=== PATIENT | female | born 1950 | race Caucasian/White ===

== ENCOUNTER 2021-07-08 11:16 | Outpatient (REF) | payer MEDICARE, SELFPAY ==
[2021-07-08 11:53] LABS: COVID-19 Test Negative (Negative)
== END 2021-07-08 11:17 | disposition home or self-care (01) ==
LOC: HO.LAB 11:16
PROVIDERS: Visit Provider Internal Medicine
DX: Z20.822 Contact with and (suspected) exposure to COVID-19 (principal)
CPT/HCPCS: 36415; 87635; C9803

== ENCOUNTER 2021-09-24 11:10 | Outpatient (REF) | payer MEDICARE, OTHER, SELFPAY ==
[2021-09-24 11:35] LABS: COVID-19 Test Negative (Negative)
== END 2021-09-24 11:11 | disposition home or self-care (01) ==
LOC: HO.LAB 11:10
PROVIDERS: Visit Provider Internal Medicine
DX: Z20.822 Contact with and (suspected) exposure to COVID-19 (principal)
CPT/HCPCS: 87635; C9803

== ENCOUNTER 2021-09-28 09:19 | Outpatient (REF) | payer MEDICARE, OTHER, SELFPAY ==
[2021-09-28 09:48] LABS: Binax Internal Control QC Valid; Binax Now Covid-19 Ag Negative (Negative)
== END 2021-09-28 09:20 | disposition home or self-care (01) ==
LOC: HO.LAB 09:19
PROVIDERS: Visit Provider Internal Medicine
DX: Z20.822 Contact with and (suspected) exposure to COVID-19 (principal)
CPT/HCPCS: C9803

== ENCOUNTER 2024-07-29 13:44 | Emergency (ER) | payer MEDICARE, OTHER, SELFPAY ==
[2024-07-29 13:53] VITALS: BP 139/83; PULSE 71; RESP 16; TEMP 36.8; O2SAT 98; BMI 32.6
--- NOTE | 2024-07-29 13:55 | ED.HA ---
HPI - Headache General Chief Complaint: General Medical Stated Complaint: l side pain from neck to head Time Seen by Provider: 07/29/24 14:35 Source: patient Mode of arrival: ambulatory Limitations: no limitations History of Present Illness ED Provider: FRANCESCA Vicente HPI Narrative: 73 year old female presents w/ one month of shooting pain and stabbing paint to forehead, cheek, gums, chins and below the chin. EPisodes last a few seconds and are severe. She also mentions sore throat and congestion. No sick contacts. No cp, sob, nausea, vomiting, abd pain, headache, vision changes, dizziness, weakness. No trauma Related Data Previous Rx's ?Medication ?Instructions ?Recorded gabapentin 100 mg capsule 100 mg PO TID #14 caps 07/29/24 Allergies Allergy/AdvReac Type Severity Reaction Status Date / Time No Known Allergies Allergy Verified 07/29/24 13:54 [No Known Allergies*] Review of Systems Review of Systems: Yes all other systems are reviewed and are negative [facility] Past Medical History Attestation statement: The following information was validated with the patient. Source: old records reviewed and nursing notes reviewed Social History Social History Advance Directives: No Advance Directives Information Provided: No Physical Exam Vital Signs: Vital Signs: Last Vital Signs Temp 98.2 F 07/29/24 15:39 Pulse 71 07/29/24 15:39 Resp 16 07/29/24 15:39 BP 139/83 07/29/24 15:39 Pulse Ox 98 07/29/24 15:39 O2 Del Method Room Air 07/29/24 15:39 BMI result Body Mass Index 32.6 vss Appearance: Alert.? Oriented X3.? No acute distress.? Head: Normocephalic, atraumatic, no step-offs or deformities Eyes: Pupils equal, round and reactive to light.? CVS: Normal heart rate and rhythm.? Pulses normal.? Respiratory: No respiratory distress.? Breath sounds normal.? Abdomen: Soft and nontender.? Skin: Skin warm and dry.? Normal skin color.? Normal skin turgor.?+ sensitivity w/ palpation of L forehead, cheek, submandibular disocomfort Extremities: No lower extremity edema.? No calf ttp. 5/5 strength to bilateral upper and lower extremities Neuro: Oriented X 3.? No motor deficit.? No sensory deficit. CN 2-12 intact Course Course Course Narrative: This is a rapid medical exam. Deferred additional HPI, ROS, PE to primary provider. 73 yo female with history of OP, anxiety, depression, HTN here with complaints of left sided facial pain described as burning which radiates to the head and neck x 1 month. Has not been seen by PCP. Also has complaints of sore throat, pain with swallowing and cough. Will obtain viral testing, strep testing. MISHA Waite APRN Reevaluation(s) Reevaluation #1: CBC unremarkable. Chemistry pending. Lyme test pending. Time: 15:49 Reevaluation #2: Patient will be called if lyme test or tick testing + Plan dc home w/ neuro follow up Time: 15:51 Medical Decision Making Medical Decision Making [facility] Narrative: 1450 73 year old female presents w/ pain to left side of face including ear, forehead, sore throat, neck, ear. PE benign sensitivity w/ palpation of L forehead, cheek, submandibular disocomfort Hx and pe concerning for trigemnial neuralgia. No signs of bells palsy, guilliane barre, stroke, ich, meningitis, encephalitis. Plan- Differential Diagnosis Differential Diagnoses: The differential diagnosis associated with the presentation includes (Hx and pe concerning for trigemnial neuralgia. No signs of bells palsy, guilliane barre, stroke, ich, meningitis, encephalitis. ) Admission/Observation Consideration of admission/observation: Escalation of care including admission/observation considered Lab Data [facility] Lab Attestation statement: I reviewed the patient's lab results. 07/29/24 15:22 07/29/24 15:22 Labs: Lab Results 07/29/24 07/29/24 Range/Units 14:47 15:22 WBC 9.0 (4.8-10.8) X10*3/uL RBC 5.30 (4.20-5.50) X10*6/uL Hgb 14.5 (12.0-16.0) g/dl Hct 44.0 (37.0-47.0) % MCV 83.0 (80.0-98.0) fL MCH 27.4 (27.0-33.0) pg MCHC 33.0 (31.0-35.0) g/dl RDW 14.0 (11.0-16.0) % Plt Count 233 (160-400) X10*3/uL MPV 11.4 (9.4-12.3) fL Immature Gran % (Auto) 0.3 (0.0-0.4) % Neut % (Auto) 72.8 (45-73) % Lymph % (Auto) 17.7 L (20-40) % [place] % (Auto) 5.5 (2-11) % Eos % (Auto) 3.0 (0-4) % Baso % (Auto) 0.7 (0-2) % Lymph # (Auto) 1.6 (1.2-4.9) X10*3/uL [place] # (Auto) 0.5 (0.1-1.2) X10*3/uL Eos # (Auto) 0.3 (0.0-0.4) X10*3/uL Baso # (Auto) 0.1 (0.0-0.2) X10*3/uL Abs Immat Gran (auto) 0.03 (0.00-0.03) X10*3/uL Absolute Neuts (auto) 6.5 (2.0-8.3) x10*3/uL Absolute Nucleated RBC 0.000 (0.0-0.012) X10*3/uL Nucleated RBC % (auto) 0.0 (0.0-0.2) /100WBC Sodium 141 (135-145) mmol/L Potassium 3.0 L (3.3-5.1) mmol/L Chloride 105 (96-108) mmol/L Carbon Dioxide 26 (22-29) mmol/L Anion Gap 13 (12-20) BUN 15 (9-16) mg/dL Creatinine 0.83 (0.5-1.4) mg/dL Estim Creat Clear Calc 61.1 Estimated GFR > 60 Random Glucose 127 H (60-115) mg/dL Calcium 9.6 (8.4-10.2) mg/dL Total Bilirubin 1.0 (0.0-1.0) mg/dL AST 21 (5-31) U/L ALT 21 (0-31) U/L Alkaline Phosphatase 60 (39-117) U/L C-Reactive Protein 0.11 (< or = 0.50) mg/dL Total Protein 6.6 (6.5-8.0) g/dL Albumin 4.3 (3.5-5.0) g/dL Influenza Type A (PCR) NEGATIVE (Negative) Influenza Type B (PCR) NEGATIVE (Negative) RSV RNA Qual (PCR) NEGATIVE (Negative) SARS-CoV-2 RNA (RT-PCR) NEGATIVE (Negative) S. pyogenes GrpA BE Negative (Negative) Critical Care Time Critical Care Time Critical Care Time: No Discharge Plan Discharge Clinical Impression: Trigeminal neuralgia Patient Disposition: Home, Self-Care Instructions: Trigeminal Neuralgia (ED) Additional Instructions: Take your medications as prescribed. If you were prescribed antibiotics today, it is important that you take your medication to their entirety, do not skip any doses, do not finish them early. Follow-up with your primary care provider this week. Return to the emergency department with new or worsening symptoms. In case of emergency call 911 Gabapentin is a medication that has been sent to your pharmacy. It can cause lightheadedness and drowsiness its for nerve pain. You can start by taking 1 pill a night and then working your way up slowly to one pill three times a day as tollerated. Prescriptions: New gabapentin 100 mg capsule 100 mg PO TID Qty: 14 0RF Referrals: [facility] [place] Neuro/Sleep [Provider Group] - 2 days Physician,Unknown J [Primary Care Provider] - 2 days Stand Alone Forms: Work/School Release Interventions: ED Discharge Assessment Last Done: 07/29/24 15:39 Discharge Date/Time: 07/29/24 15:40 Print Language: Comoran
[2024-07-29 14:59] LABS: IDNOW Serial# 08D9AD1C; Strep A Nucleic Acid Negative (Negative)
[2024-07-29 15:32] LABS: Influenza A PCR NEGATIVE (Negative); Influenza B PCR NEGATIVE (Negative); Resp Syncy Virus RNA Qual PCR NEGATIVE (Negative); SARS COV2 PCR INHOUSE NEGATIVE (Negative)
[2024-07-29 15:33] LABS: MANUAL DIFF FLAG NO
[2024-07-29 15:35] LABS: Basophils Absolute Auto 0.1 X10*3/uL (0.0-0.2); Basophils Percent Auto 0.7 % (0-2); Eosinophils Absolute Auto 0.3 X10*3/uL (0.0-0.4); Hemoglobin 14.5 g/dl (12.0-16.0); Imm Gran Abs Auto 0.03 X10*3/uL (0.00-0.03); Imm Gran Pct Auto 0.3 % (0.0-0.4); Lymphocytes Absolute Auto 1.6 X10*3/uL (1.2-4.9); Lymphocytes Percent Auto 17.7 % (20-40); Mean Corpuscular Hemoglobin 27.4 pg (27.0-33.0); Mean Platelet Volume 11.4 fL (9.4-12.3); Monocytes Absolute Auto 0.5 X10*3/uL (0.1-1.2); Monocytes Percent Auto 5.5 % (2-11); Neutrophils Absolute Auto 6.5 x10*3/uL (2.0-8.3); Neutrophils Percent Auto 72.8 % (45-73); Platelet Count 233 X10*3/uL (160-400)
[2024-07-29 15:39] VITALS: BP 139/83; PULSE 71; RESP 16; TEMP 36.8; O2SAT 98
[2024-07-29 15:48] LABS: Alanine Aminotransferase 21 U/L (0-31); Albumin Level 4.3 g/dL (3.5-5.0); Alkaline Phosphatase 60 U/L (39-117); Anion Gap 13 (12-20); Aspartate Amino Transferase 21 U/L (5-31); Blood Urea Nitrogen 15 mg/dL (9-16); C Reactive Protein 0.11 mg/dL (< or = 0.50); Calcium 9.6 mg/dL (8.4-10.2); Carbon Dioxide 26 mmol/L (22-29); Chloride 105 mmol/L (96-108); Creatinine Clr Calc Pharmacy 61.1; Estimated Glomerular Filt Rate > 60; Glucose Random 127 mg/dL (60-115); Sodium 141 mmol/L (135-145); Total Protein 6.6 g/dL (6.5-8.0)
[2024-07-29 16:18] LABS: Erythrocyte Sedimentation Rate 4 MM/HR (0-20)
[2024-07-30 17:19] LABS: Lyme Abs Screen <0.90 index
[2024-07-30 22:39] LABS: A. Phagocytphilium DNA,RT-PCR NOT DETECTED (NOT DETECTED); Babesia Microti DNA, RT-PCR NOT DETECTED (NOT DETECTED); Borrelia Miyamotoi,DNA RT-PCR NOT DETECTED (NOT DETECTED); E.Chaffeensis DNA RT-PCR NOT DETECTED (NOT DETECTED); Lyme(Borrelia ssp)DNA RT-PCR NOT DETECTED (NOT DETECTED)
== END 2024-07-29 15:40 | disposition home or self-care (01) ==
PROVIDERS: Nurse Practitioner Family; Physician Assistant; Emergency Provider Emergency Medicine
DX: G50.0 Trigeminal neuralgia (principal); H92.02 Otalgia, left ear; M54.2 Cervicalgia; R51.9 Headache, unspecified; J02.9 Acute pharyngitis, unspecified; R09.89 Other specified symptoms and signs involving the circulatory and respiratory systems; Z03.818 Encounter for observation for suspected exposure to other biological agents ruled out; Z79.899 Other long term (current) drug therapy
CPT/HCPCS: 0241U; 36415; 80053; 85025; 85652; 86140; 86617; 86618; 87468; 87469; 87478; 87484; 87651; 87798; 99282; 99283

== ENCOUNTER 2025-02-26 11:51 | Emergency (ER) | payer MEDICARE, OTHER, SELFPAY ==
--- NOTE | ~2025-02-26 | CT_ITS ---
EXAMINATION: CT HEAD WITH/WITHOUT AND WITH CONTRAST CLINICAL INFORMATION: Change in head and neck pattern, worsening, hypertension COMPARISON: None available. TECHNIQUE: Contiguous axial imaging was performed from the skull base to vertex before and after the administration of 85 mL of Omnipaque [address] examination was performed using dose optimization techniques as appropriate, variously including the following: *Automated exposure control *Adjustment of mA and/or kV according to patient size (this includes techniques or standardized protocols for targeted exams where dose is matched to indication/reason for exam; i.e. extremities or head) *Use of iterative reconstruction technique DLP: 1202 mGY*cm FINDINGS: There is no acute ischemic change. Moderate periventricular deep white matter of the densities are present. There is no intracranial hemorrhage. There is no mass-effect or midline shift. Basal cisterns and ventricles are within normal limits for age/cerebral volume. Orbits are symmetrical and unremarkable. Paranasal sinuses and mastoid air cells are pneumatized. There are no bony abnormalities. With IV contrast, there is physiologic enhancement. 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 CT/CT head/brain wo/w IV con IMPRESSION: No acute intracranial abnormality. Moderate changes consistent with chronic small vessel ischemic disease. Electronically signed by: George Portillo MD 02/26/2025 02:38 PM EDT
--- NOTE | ~2025-02-26 | XR_ITS ---
EXAMINATION: XR CHEST 2 VIEWS HISTORY: cough COMPARISON: There are no prior studies available for comparison. FINDINGS: PA and lateral views of the chest are submitted. The lungs are expanded and clear. There is no pleural effusion, pneumothorax, or pulmonary vascular congestion. The heart is normal in size. The aorta is calcified. There is degenerative disc disease and scoliosis of the spine. XR/XR chest 2V IMPRESSION: Clear lungs. Electronically signed by: Kris Ashby MD 02/26/2025 12:42 PM EDT
[2025-02-26 12:08] VITALS: BP 199/86; PULSE 73; RESP 16; TEMP 36.5; O2SAT 95; BMI 33.2
--- NOTE | 2025-02-26 12:09 | ED_ITS ---
HPI - Headache General Chief Complaint: Headache Stated Complaint: vomitting, headache, sinus infection Time Seen by Provider: 02/26/25 13:58 History of Present Illness ED Provider: Bing BARAHONA Narrative: The patient is a 74-year-old woman who was seen at an neurology office in [place] a few weeks ago because of symptoms that she has been having on the left side of her neck and the left side of her face that was thought to possibly be trigeminal neuralgia. She was started on carbamazepine with some improvement in these symptoms. Separately she seems to have developed fairly frequent headaches over the last couple of weeks. She says that initially she had seen her primary care doctor who thought she might have sinusitis. The patient was given a course of antibiotics. The patient has continued to have headaches fairly frequently and she is finding the headaches quite bothersome. The headaches are bilateral. She seems to indicate that they are more in the front of her head and in her face. The headaches are not associated with any neck stiffness. No definite fevers recently. Related Data Previous Rx's ?Medication ?Instructions ?Recorded gabapentin 100 mg capsule 100 mg PO TID #14 caps 07/29 boumiclgle-vysuwflavhtdg-ersfkjou 1 cap PO Q6H PRN arie n #14 caps 02/26/25 50 mg-300 mg-40 mg capsule (Fioricet) ondansetron 4 mg disintegrating 4 mg PO Q6H PRN nausea and 02/26/25 tablet vomiting #10 tabs Allergies Allergy/AdvReac Type Severity Reaction Status Date / Time No Known Allergies (No Known Allergy Verified 02/26/25 12:11 Allergies*) [facility] Social History Social History Advance Directives: Yes Advance Directives Information Provided: No Advance Directives on File: No Do you have a plan to hurt others: No Plan Physical Exam 2 Vital Signs: Vital Signs: Last Vital Signs Temp 97.9 F 02/26/25 16:21 Pulse 62 02/26/25 16:21 Resp 12 02/26/25 16:21 BP 147/67 H 02/26/25 16:21 Pulse Ox 98 02/26/25 16:21 O2 Del Method Room Air 02/26/25 16:21 BMI result Body Mass Index 33.2 Const: Other: The patient is a 74-year-old woman who was awake and alert. She appears mildly uncomfortable but not toxic. HEENT: Other: Face is symmetrical, mucous membranes moist, posterior pharynx is unremarkable. Eyes: General: appearance normal, both eyes and all related structures E yelids: Yes eyelids normal Conjunctivae: conjunctivae normal Pupils: E qual, round and reactive pupils present EOM: EOMs intact bilaterally Neck: Neck: Yes normal visual inspection, Yes full ROM, Yes no lymphadenopathy, Yes no meningeal signs, Yes supple and Yes no JVD Resp: Effort & Inspection: normal respiratory effort Auscultation: clear to auscultation bilaterally Cardio: Rate: regular rate Rhythm: regular rhythm Heart sounds: S1 normal heart sound present and S2 normal heart sound present Neuro: Other: The patient is awake and alert with a normal mental status. She does not seem toxic. Pupils are round, equal, and reactive to light, extraocular movements are intact. The face is symmetrical. Speech is clear and normal. She moves her extremities symmetrically and appropriately. She seems neurologically intact. General: no meningeal signs Cranial nerves: Yes Equal, round and reactive pupils present Extrem: Other: There is no calf swelling or tenderness. No asymmetry. No peripheral edema. Medications Administered Discontinued Medications Generic Name Dose Route Start Last Admin Trade Name Freq PRN Reason Stop Dose Admin Acetaminophen/Butalbital/Caffeine 1 tab 02/26/25 16:23 02/26/25 16:40 Butalb/Acetamin/Caff 50/325/40 Tablet PO 02/26/25 16:24 1 tab ONCE ONE Administration Diphenhydramine HCl 12.5 mg 02/26/25 14:51 02/26/25 15:17 Diphenhydramine Hcl 50 Mg/Ml Vial IVPUSH 02/26/25 14:52 12.5 mg ONCE ONE Administration Sodium Chloride 1,000 mls @ 999 mls/hr 02/26/25 15:00 02/26/25 16:41 Ns IV 02/26/25 16:00 Infused .Q1H1M NEVAEH Infusion Iohexol 100 ml 02/26/25 14:20 02/26/25 14:21 Iohexol 350 Mg/Ml 100 Ml Infus..Btl IV 02/26/25 14:21 85 ml ONCE ONE Administration Ketorolac Tromethamine 10 mg 02/26/25 14:51 02/26/25 15:10 Ketorolac Tromethamine 15 Mg/Ml Vial IVPUSH 02/26/25 14:52 10 mg ONCE ONE Administration Prochlorperazine Edisylate 10 mg 02/26/25 14:51 02/26/25 15:09 Prochlorperazine Edisylate 10 Mg/2 Ml Vial IVPUSH 02/26/25 14:52 10 mg ONCE ONE Administration Medical Decision Making Medical Decision Making [facility] Narrative: The patient is a 74-year-old woman who presents for evaluation of a new headache syndrome. She recently started carbamazepine for what sounds like a left-sided trigeminal neuralgia syndrome. The headache syndrome she is describing seems distinct from a trigeminal neuralgia syndrome. The new headache syndrome as a bilateral headache which is associated with some photophobia, nausea, and vomiting. This was not a thunderclap headache. She has no neck stiffness. There was no fever. She has a an unremarkable neurological exam. She has a supple neck. Clinically this seems to possibly be some kind of a migraine syndrome. I have a low suspicion for subarachnoid hemorrhage or meningitis. Low suspicion for temporal arteritis. Labs show a normal white count with an unremarkable differential. ESR is normal at 4. CRP is normal at 0.11. Metabolic labs are unremarkable. CT of the brain with and without IV contrast shows no acute findings. The patient was treated for a possible migraine with ketorolac, prochlorperazine, diphenhydramine, and IV fluids. She had some improvement of her headache although not complete resolution of her headache. She will be discharged with a prescription for Fioricet. She should follow up with her PCP. 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 She should return if worse. Lab Data 02/26/25 12:45 02/26/25 12:45 Labs: Lab Results 02/26/25 02/26/25 Range/Units 12:45 16:04 WBC 7.5 (4.8-10.8) X10*3/uL RBC 5.56 H (4.20-5.50) X10*6/uL Hgb 15.0 (12.0-16.0) g/dl Hct 44.9 (37.0-47.0) % MCV 80.8 (80.0-98.0) fL MCH 27.0 (27.0-33.0) pg MCHC 33.4 (31.0-35.0) g/dl RDW 14.0 (11.0-16.0) % Plt Count 189 (160-400) X10*3/uL MPV 10.1 (9.4-12.3) fL Immature Gran % (Auto) 0.1 (0.0-0.4) % Neut % (Auto) 75.6 H (45-73) % Lymph % (Auto) 17.8 L (20-40) % [place] % (Auto) 5.5 (2-11) % Eos % (Auto) 0.3 (0-4) % Baso % (Auto) 0.7 (0-2) % Lymph # (Auto) 1.3 (1.2-4.9) X10*3/uL [place] # (Auto) 0.4 (0.1-1.2) X10*3/uL Eos # (Auto) 0.0 (0.0-0.4) X10*3/uL Baso # (Auto) 0.1 (0.0-0.2) X10*3/uL Abs Immat Gran (auto) 0.01 (0.00-0.03) X10*3/uL Absolute Neuts (auto) 5.7 (2.0-8.3) x10*3/uL Absolute Nucleated RBC 0.000 (0.0-0.012) X10*3/uL Nucleated RBC % (auto) 0.0 (0.0-0.2) /100WBC ESR 4 (0-20) MM/HR Sodium 145 (135-145) mmol/L Potassium 3.5 (3.3-5.1) mmol/L Chloride 111 H (96-108) mmol/L Carbon Dioxide 26 (22-29) mmol/L Anion Gap 12 (12-20) BUN 12 (9-16) mg/dL Creatinine 0.50 (0.5-1.4) mg/dL Estim Creat Clear Calc 101.1 Estimated GFR > 60 Fasting Glucose 117 H (60-99) mg/dL Calcium 8.7 D (8.4-10.2) mg/dL Magnesium 2.2 (1.6-2.6) mg/dL Total Bilirubin 0.6 (0.0-1.0) mg/dL AST 19 (5-31) U/L ALT 17 (0-31) U/L Alkaline Phosphatase 80 (39-117) U/L C-Reactive Protein 0.11 (< or = 0.50) mg/dL C-React Prot High Sens Cancelled Total Protein 6.8 (6.5-8.0) g/dL Albumin 4.6 (3.5-5.0) g/dL Lipase 22 (8-78) U/L Urine Color Yellow Urine Appearance Clear Urine pH 6.5 (5.0-9.0) Ur Specific [place] >= 1.030 H (1.005-1.025) Urine Protein Trace (Neg-Trace) mg/dL Urine Glucose (UA) Negative (Negative) mg/dL Urine Ketones Trace (Negative) mg/dL Urine Blood Trace H (Negative) Urine Nitrite Negative (Negative) Ur Leukocyte Esterase Negative (Negative) Urine RBC 6-10 H (0-2) /HPF Urine WBC 0-5 (0-5) /HPF Ur Squamous Epith Cells 3-5 (0-2) /HPF Urine Bacteria None Seen (None Seen) Hyaline Casts 0-2 (0-2) /LPF COVID-19 ([facility]LA) Negative (Negative) COVID-19 Clin Com See Note Independent Interpretation I performed an independent interpretation of an: EKG Discharge Plan Discharge Clinical Impression: Headache Patient Disposition: Home, Self-Care Additional Instructions: There is no finding on your CAT scan to account for your headaches. Your blood tests are also very reassuring as is your physical exam. I have sent a prescription for a medication called Fioricet which you may try to see if it helps with your headaches. I have also sent a prescription for a nausea medication, ondansetron (commonly known as Zofran). Please contact your regular doctor's office for a follow up appointment. I would also recommend that you follow up with the neurology office as well. Therefore please call the neurology office and your primary care doctor's office tomorrow to try to set up follow up for these headaches. Return to the emergency room if significantly worse. Prescriptions: New vnmijiolxl-tzofhlbqeiqch-dnoo [Fioricet] 50-300-40 mg capsule 1 cap PO Q6H PRN (Reason: pain) Qty: 14 0RF ondansetron 4 mg tablet,disintegrating 4 mg PO Q6H PRN (Reason: nausea and vomiting) Qty: 10 0RF No Action gabapentin 100 mg capsule 100 mg PO TID Qty: 14 0RF Referrals: Adrian Kemp MD [Primary Care Provider, Primary Care] Referral Note: headaches Bentley Templeton NP [Nurse Practitioner, Internal Medicine] Referral Note: headaches Interventions: ED Discharge Assessment Last Done: 02/26/25 16:21 Discharge Date/Time: 02/26/25 16:47 Print Language: Stateless
[2025-02-26 12:51] LABS: MANUAL DIFF FLAG NO
[2025-02-26 12:53] LABS: Basophils Absolute Auto 0.1 X10*3/uL (0.0-0.2); Basophils Percent Auto 0.7 % (0-2); Eosinophils Percent Auto 0.3 % (0-4); Hematocrit 44.9 % (37.0-47.0); Imm Gran Abs Auto 0.01 X10*3/uL (0.00-0.03); Imm Gran Pct Auto 0.1 % (0.0-0.4); Lymphocytes Absolute Auto 1.3 X10*3/uL (1.2-4.9); Lymphocytes Percent Auto 17.8 % (20-40); Mean Corpuscular HGB Conc 33.4 g/dl (31.0-35.0); Mean Corpuscular Volume 80.8 fL (80.0-98.0); Mean Platelet Volume 10.1 fL (9.4-12.3); Monocytes Absolute Auto 0.4 X10*3/uL (0.1-1.2); Monocytes Percent Auto 5.5 % (2-11); Neutrophils Absolute Auto 5.7 x10*3/uL (2.0-8.3); Neutrophils Percent Auto 75.6 % (45-73); Platelet Count 189 X10*3/uL (160-400); Red Blood Count 5.56 X10*6/uL (4.20-5.50); White Blood Count 7.5 X10*3/uL (4.8-10.8)
[2025-02-26 13:06] LABS: COVID-19 Test Negative (Negative); IDNOW Serial# 58CA691E
[2025-02-26 13:17] LABS: Alanine Aminotransferase 17 U/L (0-31); Albumin Level 4.6 g/dL (3.5-5.0); Alkaline Phosphatase 80 U/L (39-117); Anion Gap 12 (12-20); Aspartate Amino Transferase 19 U/L (5-31); Bilirubin Total 0.6 mg/dL (0.0-1.0); Blood Urea Nitrogen 12 mg/dL (9-16); Calcium 8.7 mg/dL (8.4-10.2); Carbon Dioxide 26 mmol/L (22-29); Chloride 111 mmol/L (96-108); Creatinine Clr Calc Pharmacy 101.1; Estimated Glomerular Filt Rate > 60; Glucose Fasting 117 mg/dL (60-99); Lipase 22 U/L (8-78); Magnesium 2.2 mg/dL (1.6-2.6); Potassium 3.5 mmol/L (3.3-5.1); Sodium 145 mmol/L (135-145); Total Protein 6.8 g/dL (6.5-8.0)
[2025-02-26 13:33] LABS: Erythrocyte Sedimentation Rate 4 MM/HR (0-20)
[2025-02-26 14:00] VITALS: BP 152/76; PULSE 65; RESP 14; TEMP 36; O2SAT 96
--- NOTE | 2025-02-26 14:01 | PC.NURSE ---
This Nurse obtained 20G IV access in Left AC, Call murphy within reach, CT scan team notified.
[2025-02-26] MEDS: iohexoL 350 MG/ML 100 ML INFUS..BTL IV (14:21)
--- OUTSIDE RECORDS SUMMARY | 2025-02-26 14:32 | XMS_ITS | Clinical Summary ---
Author Organization [facility] Address [address] [place] [address] Phone Care Team Providers Care Psychology Teacher Name Role Phone Adrian Kemp MD Primary Care Provider [phone] Allergies Active Allergy Reactions Criticality Noted Date Comments Dulaglutide Rash 07/30/2024 Medications loperamide (IMODIUM) 2 mg capsule Take 1 capsule (2 mg total) by mouth 4 (four) times a day if needed for diarrhea. 3 Active bisacodyL (Dulcolax, bisacodyl,) 5 mg EC tablet Take 2 tabs by mouth right before beginning bowel prep. Follow instructions given by office for timing. 3 Active busPIRone (BUSPAR) 10 mg tablet Take 1 tablet (10 mg total) by mouth 2 (two) times a day. Active dicyclomine (BENTYL) 10 mg capsule Take 1 Capsule by mouth 4 times daily (before meals and nightly). Use as needed for cramping 3 Active ketoconazole (NIZORAL) 2 % cream Apply topically 2 times daily. Active sertraline (ZOLOFT) 100 mg tablet Take 2 tablets (200 mg total) by mouth 1 (one) time each day. Active amLODIPine (NORVASC) 10 mg tablet Take 10 mg by mouth daily. Active benazepriL (LOTENSIN) 40 mg tablet Take 40 mg by mouth daily. Active cetirizine (ZyrTEC) 10 mg tablet Take 1 tablet (10 mg total) by mouth 1 (one) time each day. Active chlorthalidone (HYGROTON) 25 mg tablet Take 1 tablet (25 mg total) by mouth 1 (one) time each day. Active omeprazole (PriLOSEC) [address] capsule Take 1 capsule (40 mg total) by mouth 1 (one) time each day. Active albuterol HFA (PROAIR HFA ; PROVENTIL HFA ; VENTOLIN HFA) 90 mcg/actuation inhaler Inhale 2 puffs by mouth every 4 (four) hours if needed. Active LORazepam (ATIVAN) 0.5 mg tablet Take 1 tablet (0.5 mg total) by mouth every 6 (six) hours if needed. Active polyethylene glycol (Golytely) 236-22.74-6.74 -5.86 gram solution Take 4L by mouth once for one dose. May substitue any PEG. Starting at 6PM the night before your procedure drink 1 8oz glasses at your own pace until you complete half of the gallon. Finish 2nd half of the gallon 5 hours before your procedure. 4000 mL 4 Active bisacodyL (DULCOLAX) 5 mg EC tablet Take 2 tablets by mouth right before beginning bowel prep. See instructions provided by the office 2 tablet 4 Active calcium carbonate (OS-WERNER) 1250 mg (500 mg elemental calcium) chewable tablet Chew 1 tablet (1,250 mg total) 2 (two) times a day. Active cholecalciferol (VITAMIN D-3) 50 mcg (2,000 unit) tablet Take 1 tablet (2,000 Units total) by mouth 1 (one) time each day. Active Prolia 60 mg/mL syringe syringe 4 Active carBAMazepine (TEGretol) 100 mg chewable tablet Chew 1 tablet (100 mg total) 2 (two) times a day. for 30 days 4 Active gabapentin (NEURONTIN) 100 mg capsule Take 1 capsule (100 mg total) by mouth. 4 Active Active Problems Problem Noted Date Diagnosed Date Chest pain 11/18/2021 Overview (06/11/2024): Last Assessment & Plan: The pain could be related to stress. Giving her longstanding hypertension, and shortness of breath, would like to arrange exercise echocardiogram stress test to assess cardiac function and structure, and rule out ischemia. Hyperlipidemia 11/18/2021 Hypertension 11/18/2021 Obesity 11/18/2021 Encounters Date Type Department Care Team Description 12/31/2024 8:03 AM EDT - 12/31/2024 11:59 PM EDT Hospital Encounter [facility] Bone Density [address] [place] [address] Age-related osteoporosis without current pathological fracture Discharge Disposition: Home or Self Care from Last 3 Months Surgical History Surgery Date Site/Laterality Comments HYSTERECTOMY PROCEDURE: HISTORICAL HYSTERECTOMY OTHER SURGICAL HISTORY PROCEDURE: HISTORY OTHER; COMMENT: Bunionectomy CHOLECYSTECTOMY PROCEDURE: HISTORICAL CHOLECYSTECTOMY WRIST SURGERY Bilateral PROCEDURE: HISTORICAL WRIST SURGERY COLONOSCOPY 2013 PROCEDURE: HISTORICAL COLONOSCOPY TOTAL KNEE ARTHROPLASTY Right PROCEDURE: ID ARTHRP KNE CONDYLE&PLATU MEDIAL&LAT COMPARTMENTS Medical History Medical History Date Comments Depression DX:Depression Vitamin D deficiency DX:Vitamin D deficiency Osteopenia DX:Osteopenia Obesity DX:Obesity Esophageal reflux DX:Esophageal reflux Irritable bowel syndrome DX:Irri table bowel syndrome Abdominal pain DX:Abdominal arie n Abdominal bloating DX:Abdominal bloating Passage of loose stools DX:Passa ge of loose stools Stress DX:Stress Trigeminal neuralgia Family History Medical History Relation Name Comments Other: Heart Disease, Unspecified Father Lung cancer Mother Other: Other Malignant Neoplasm of Unspecified Site Mo ther Relation Name Status Comments Father Mother Social History Tobacco Use Types Packs/Day Years Used Date Smoking Tobacco: Former Smokeless Tobacco: Never Alcohol Use Standard Drinks/Week Comments Not Currently 0 (1 standard drink = 0.6 oz pur e alcohol) Interpersonal Safety Answer Date Record ed Physical Abuse 08/08/2024 Verbal Abuse 08/08/2024 Comments No Sex and Gender Information Value Date Recorded Sex Assigned at Not on file Legal Sex Female 9:47 PM EST Gender Identity Not on file Sexual Orientation Not on file Obstetrics History Last Filed Vital Signs Vital Sign Reading Time Taken Comments Blood Pressure 126/77 08/08/2024 10:46 AM EST Pulse 54 08/08/2024 10:46 AM EST Temperature 36.7 C (98 F) 08/08/2024 9:30 AM EST Respiratory Rate 16 08/08/2024 10:46 AM EST Oxygen Saturation 99% 08/08/2024 10:46 AM EST Inhaled Oxygen Concentration - - Weight 81.6 kg (180 lb) 08/08/2024 9:30 AM EST Height 160 cm (5' 3 ) 08/08/2024 9:30 AM EST Body Mass Index 31.89 08/08/2024 9:30 AM EST Plan of Treatment Health Maintenance Due Date Last Done Comments Breast Cancer Screening 1950 DTaP,Tdap,and Td Vaccines (1 - Tdap) 1971 Zoster Vaccines (1 of 2) 2002 Colorectal Cancer Screening: Stool Based Tests (FOBT/FIT) 08/07/2022 Depression Screening 08/07/2022 Hepatitis C Screening 08/07/2022 Medicare Annual Wellness Visit 08/07/2022 Social Influencers of Health Screening 08/07/2022 COVID-19 Vaccine ( season) 2024 06/06/2024, 08/06/2022, 09/14/2021, Additional history exists Falls Risk Assessment 08/08/2025 08/08/2024 Hypertension/CHF/CAD Annual BMP Blood Test 12/25/2025 12/25/2024 RSV Immunization Adult Patients (1 - 1-dose 75+ series) 2027 Cholesterol Screening (Lipid Panel) 12/25/2029 12/25/2024 Osteoporosis Screening (Bone Density Screening) 12/31/2034 12/31/2024, 02/13/2021 Pneumococcal Vaccine: 50+ Years Completed 06/09/2022, 09/07/2019 Influenza Vaccine Completed 06/06/2024, , 06/09/2022, Additional history exists Colorectal Cancer Screening: Colonoscopy Discontinued 08/08/2024, 06/27/2023 HIB Vaccines Aged Out No longer eligi ble based on patient's age to complete this topic HPV Vaccines Aged Out No longer eligi ble based on patient's age to complete this topic Hepatitis A Vaccines Aged Out No long er eligible based on patient's age to complete this topic Hepatitis B Vaccines Aged Out No long er eligible based on patient's age to complete this topic IPV Vaccines Aged Out No longer eligi ble based on patient's age to complete this topic MMR Vaccines Aged Out No longer eligi ble based on patient's age to complete this topic Meningococcal ACWY Vaccine Aged Out N o longer eligible based on patient's age to complete this topic Meningococcal B Vaccine Aged Out No l onger eligible based on patient's age to complete this topic RSV Immunization Patients Under 20 months Aged Out No longer eligible based on patient's age to complete this topic Varicella Vaccines Aged Out No longer eligible based on patient's age to complete this topic Procedures Procedure Name Priority Date/Time Associated Diagnosis Comments BD BONE DENSITY DXA AXIAL SKELETON Routine 12/31/2024 8:52 AM EDT Age-related osteoporosis without current pathological fracture CBC WITH AUTO DIFFERENTIAL Routine 12/25/2024 8:43 AM EDT Routine general medical examination at a health care facility Screening for lipoid disorders Screening for diabetes mellitus Screening for thyroid disorder Avitaminosis D Abnormal finding of blood chemistry, unspecified VITAMIN D 25 HYDROXY Routine 12/25/2024 8:43 AM EDT Routine general medical examination at a health care facility Screening for lipoid disorders Screening for diabetes mellitus Screening for thyroid disorder Avitaminosis D Abnormal finding of blood chemistry, unspecified THYROID STIMULATING HORMONE Routine 12/25/2024 8:43 AM EDT Routine general medical examination at a health care facility Screening for lipoid disorders Screening for diabetes mellitus Screening for thyroid disorder Avitaminosis D Abnormal finding of blood chemistry, unspecified Other general symptoms and signs HEMOGLOBIN A1C Routine 12/25/2024 8:43 AM EDT Routine general medical examination at a health care facility Screening for lipoid disorders Screening for diabetes mellitus Screening for thyroid disorder Avitaminosis D Abnormal finding of blood chemistry, unspecified LIPID PANEL WITH REFLEX TO DIRECT LDL Routine 12/25/2024 8:43 AM EDT Routine general medical examination at a health care facility Screening for lipoid disorders Screening for diabetes mellitus Screening for thyroid disorder Avitaminosis D Abnormal finding of blood chemistry, unspecified COMPREHENSIVE METABOLIC PANEL Routine 12/25/2024 8:43 AM EDT Routine general medical examination at a health care facility Screening for lipoid disorders Screening for diabetes mellitus Screening for thyroid disorder Avitaminosis D Abnormal finding of blood chemistry, unspecified CBC AND DIFFERENTIAL Routine 12/25/2024 8:43 AM EDT Routine general medical examination at a health care facility Screening for lipoid disorders Screening for diabetes mellitus Screening for thyroid disorder Avitaminosis D Abnormal finding of blood chemistry, unspecified COLONOSCOPY Routine 08/08/2024 10:25 AM EST Hx of colonic polyps from Last 3 Months or Most Recently Relevant to Health Maintenance Results * BD Bone Density DXA Axial Skeleton (12/31/2024 8:52 AM EDT) Anatomical Region Laterality Modality Wrist, Hip, L-spine Bone Densito metry 12/31/2024 8:56 AM EDT Impressions 12/31/2024 9:00 AM EDT 1. Osteoporosis. There has been a decrease of 0.1% in bone mineral density in the lumbar spine since the prior examination of 02/12/2021. There has been a decrease of 5.8% in bone mineral density in the right femur and an increase of 9.9% in bone mineral density in the left femur. 2. FRAX analysis yields a 10-year probability of major osteoporotic fracture of 15.4% and a 10-year probability of hip fracture of 4.3%. Code 77642 -------- FINAL REPORT -------- Dictated By: Bentley Blank Dictated Date: 12/31/2024 08:56 ET Assigned Physician: Bentley Blank Reviewed and Electronically Signed By: Bentley Blank Signed Date: 12/31/2024 09:00 ET Workstation ID: [id number] Transcribed By: Self Edit Transcribed Date: 12/31/2024 08:57 ET Narrative 12/31/2024 9:00 AM EDT HISTORY: The patient is a 74-year-old postmenopausal female with clinical concern for metabolic bone disease. FINDINGS: Dual energy x-ray absorptiometry of the lumbar spine and femurs is performed. The mean bone mineral density at L2-4 is 0.925 gm/cm2 which is 77% of that of young normals and 87% of that of age matched controls. This yields a T-score of -2.3 and a Z-score of -1.2 which is diagnostic of osteopenia. The mean bone mineral density of the femurs bilaterally is 0.682 gm/cm2 which is 68% of that of young normals and 79% of that of age matched controls. This yields a T-score of -2.6 and a Z-score of -1.4 which is diagnostic of osteoporosis. The T-score of the right femoral neck is -2.6 and that of the left femoral neck is -2.8 which is diagnostic of osteoporosis. Procedure Note Bentley Blank MD - 12/31/2024 HISTORY: The patient is a 74-year-old postmenopausal female with clinicalconcern for metabolic bone disease. FINDINGS: Dual energy x-ray absorptiometry of the lumbar spine and femursis performed. The mean bone mineral density at L2-4 is 0.925 gm/cm2 whichis 77% of that of young normals and 87% of that of age matched controls.This yields a T-score of -2.3 and a Z-score of -1.2 which is diagnostic ofosteopenia. The mean bone mineral density of the femurs bilaterally is 0.682 gm/nd0rqgqm is 68% of that of young normals and 79% of that of age matchedcontrols. This yields a T-score of -2.6 and a Z-score of -1.4 which isdiagnostic of osteoporosis. The T- score of the right femoral neck is -2.6and that of the left femoral neck is -2.8 which is diagnostic ofosteoporosis. IMPRESSION: 1. Osteoporosis. There has been a decrease of 0.1% in bone mineraldensity in the lumbar spine since the prior examination of 02/12/2021.There has been a decrease of 5.8% in bone mineral density in the rightfemur and an increase of 9.9% in bone mineral density in the left femur. 2. FRAX analysis yields a 10-year probability of major osteoporoticfracture of 15.4% and a 10-year probability of hip fracture of 4.3%. Code 84745 -------- FINAL REPORT -------- Dictated By: Bentley Blank Dictated Date: 12/31/2024 08:56 ET Assigned Physician: Bentley Blank Reviewed and Electronically Signed By: Bentley Blank Signed Date: 12/31/2024 09:00 ET Workstation ID: [id number] Transcribed By: Self Edit Transcribed Date: 12/31/2024 08:57 ET us Prem Potter [employer] IMG DXA PROCEDURES Final Resu lt * (ABNORMAL) Lipid panel with reflex to direct LDL (12/25/2024 8:43 AM EDT) Cholesterol 193 0 - 200 mg/dL LAB CHEMISTRY METHOD 12/25/2024 10:15 AM EDT [facility] Triglycerides 131 0 - 150 mg/dL LAB CHEMISTRY METHOD 12/25/2024 10:15 AM EDT [facility] HDL 44 >=40 mg/dL LAB CHEMISTRY METHOD 12/25/2024 10:15 AM EDT [facility] LDL Calculated 123(H) 0 - 100 mg/dL LAB CHEMISTRY METHOD 12/25/2024 10:15 AM EDT [facility] VLDL Cholesterol Werner 26.2 mg/dL LAB CHEMISTRY METHOD 12/25/2024 10:15 AM EDT [facility] Non HDL Chol. (LDL+VLDL) 149(H) <145 mg/dL LAB CHEMISTRY METHOD 12/25/2024 10:15 AM EDT [facility] Chol/HDL Ratio 4.4 0.0 - 4.4 LAB CHEMISTRY METHOD 12/25/2024 10:15 AM EDT [facility] Blood Venous blood specimen / Unknown Venipuncture / Unknown 12/25/2024 8:43 AM EDT 12/25/2024 9:09 AM EDT us Prem Potter [employer] LAB BLOOD ORDERABLES Final Re sult [facility] [address] [place] [address], [place] [phone] * (ABNORMAL) CBC auto differential (12/25/2024 8:43 AM EDT) [facility] WBC 8.5 4.8 - 10.8 K/mcL LAB HEMETOLOGY METHOD 12/25/2024 9:32 AM [facility] RBC 5.30(H) 3.80 - 4.80 M/mcL LAB HEMETOLOGY METHOD [facility]24 [facility] Hemoglobin 14.1 11.5 - 16.0 g/dL LAB HEMETOLOGY METHOD 12/25/2024 9:32 AM [facility] Hematocrit 44.4 35.0 - 47.0 % LAB HEMETOLOGY METHOD 12/25/2024 9:32 AM [facility] MCV 84.3 79.0 - 98.0 FL LAB HEMETOLOGY METHOD 12/25/2024 9:32 AM [facility] MCH 26.8(L) 27.0 - 32.0 pcg LAB HEMETOLOGY METHOD 12/25/2024 9:32 AM [facility] MCHC 31.8(L) 32.0 - 37.0 g/dL LAB HEMETOLOGY METHOD 12/25/2024 9:32 AM [facility] RDW 13.8 11.0 - 15.0 % LAB HEMETOLOGY METHOD 12/25/2024 9:32 AM [facility] Platelets 215 130 - 400 K/mcL LAB HEMETOLOGY METHOD 12/25/2024 9:32 AM [facility] MPV 11.5(H) 7.0 - 11.0 FL LAB HEMETOLOGY METHOD 12/25/2024 9:32 AM [facility] NRBC 0.0 <1.0 % LAB HEMETOLOGY METHOD 12/25/2024 9:[facility] NRBC Absolute 0.00 <0.10 K/mcL LAB HEMETOLOGY METHOD 12/25/2024 9:32 AM [facility] Neutrophils Relative 72.1 % LAB HEMETOLOGY METHOD 12/25/2024 9:32 AM [facility] Lymphocytes Relative 16.8 % LAB HEMETOLOGY METHOD 12/25/2024 9:32 AM [facility] Monocytes Relative 5.8 % LAB HEMETOLOGY METHOD 12/25/2024 9:32 AM [facility] Eosinophils Relative 4.0 % LAB HEMETOLOGY METHOD 12/25/2024 9:32 AM [facility] Basophils Relative 0.8 % LAB HEMETOLOGY METHOD 12/25/2024 9:32 AM [facility] Immature Granulocytes Relative 0.5 % LAB HEMETOLOGY METHOD 12/25/2024 9:32 AM [facility] Neutrophils Absolute 6.10 1.50 - 7.00 K/mcL LAB HEMETOLOGY METHOD 12/25/2024 9:32 AM [facility] Lymphocytes Absolute 1.42 1.00 - 5.00 K/mcL LAB HEMETOLOGY METHOD 12/25/2024 9:32 AM [facility] Monocytes Absolute 0.49 0.20 - 1.00 K/mcL LAB HEMETOLOGY METHOD 12/25/2024 9:32 AM [facility] Eosinophils Absolute 0.34 0.00 - 0.50 K/mcL LAB HEMETOLOGY METHOD 12/25/2024 9:32 AM [facility] Basophils Absolute 0.07 0.00 - 0.20 K/mcL LAB HEMETOLOGY METHOD 12/25/2024 9:32 AM [facility] Immature Granulocytes Absolute 0.04(H) 0.00 - 0.03 K/mcL LAB HEMETOLOGY METHOD 12/25/2024 9:32 AM EDT [facility] Blood Venous blood specimen / Unknown Venipuncture / Unknown 12/25/2024 8:43 AM EDT 12/25/2024 9:10 AM EDT Prem Potter [employer] LAB BLOOD ORDERABLES Final Re sult Performing Organization Address [facility] Co de Phone Number [facility] [address] [place] [address], [place] [phone] * (ABNORMAL) Vitamin D 25 hydroxy (12/25/2024 8:43 AM EDT) Pathologist [facility] Vit D, 25-Hydroxy 28.6(L) 30.0 - 80.0 ng/mL LAB CHEMISTRY METHOD 12/25/2024 11:09 AM EDT [facility] Blood Venous blood specimen / Unknown Venipuncture / Unknown 12/25/2024 8:43 AM EDT 12/25/2024 9:09 AM EDT Prem Potter NP LAB BLOOD ORDERABLES Final Re sult Performing Organization Address [facility] de Phone Number [facility] [address] [place] [address], [place] [phone] * Thyroid stimulating hormone (12/25/2024 8:43 AM EDT) [facility] TSH 2.10 0.40 - 4.00 mcIU/mL LAB CHEMISTRY METHOD 12/25/2024 11:09 AM EDT [facility] Blood Venous blood specimen / Unknown Venipuncture / Unknown 12/25/2024 8:43 AM EDT 12/25/2024 9:09 AM EDT Prem Potter [employer] LAB BLOOD ORDERABLES Final Re sult Performing Organization Address City/[facility]/ZIP Co de Phone Number [facility] [address] [place] [address], [place] [phone] * Hemoglobin A1c (12/25/2024 8:43 AM EDT) [facility] Hemoglobin A1C 5.4 <6.5 % LAB CHEMISTRY METHOD 12/25/2024 11:20 AM EDT [facility] Mean Bld Glu Estim. 108 mg/dL LAB CHEMISTRY METHOD 12/25/2024 11:20 AM EDT [facility] Blood Venous blood specimen / Unknown Venipuncture / Unknown 12/25/2024 8:43 AM EDT 12/25/2024 9:10 AM EDT Prem Potter [employer] LAB BLOOD ORDERABLES Final Re sult [facility] [address] [place] [address], [place] [phone] * (ABNORMAL) Comprehensive metabolic panel (12/25/2024 8:43 AM EDT) [facility] Sodium 143 133 - 145 mmol/L LAB CHEMISTRY METHOD 12/25/2024 10:15 AM T [facility] Potassium 3.9 3.5 - 5.5 mmol/L LAB CHEMISTRY METHOD 12/25/2024 10:15 AM EDT [facility] Chloride 109 96 - 110 mmol/L LAB CHEMISTRY METHOD 12/25/2024 10:15 AM T [facility] CO2 28 21 - 32 mmol/L LAB CHEMISTRY METHOD 12/25/2024 10:15 AM EDT [facility] Anion Gap 6 3 - 11 LAB CHEMISTRY METHOD 12/25/2024 10:15 AM [facility] Glucose 107(H) 70 - 100 mg/dL LAB CHEMISTRY METHOD 12/25/2024 10:15 AM EDT [facility] BUN 15 5 - 25 mg/dL LAB CHEMISTRY METHOD 12/25/2024 10:15 AM [facility] Creatinine 0.56 0.50 - 1.10 mg/dL LAB CHEMISTRY METHOD 12/25/2024 10:15 AM [facility] eGFR 97 >=60 mL/min/1. 73m2 LAB CHEMISTRY METHOD 12/25/2024 10:15 AM [facility] Comment:Calculation based on the Chronic Kidney Disease Epidemiology Collaboration (CKD-EPI) equation refit without adjustment for race. BUN/Creatinine Ratio 26.8 LAB CHEMISTRY METHOD 12/25/2024 10:15 AM [facility] Calcium 9.3 8.5 - 10.5 mg/dL LAB CHEMISTRY METHOD 12/25/2024 10:15 AM [facility] AST (SGOT) 12 10 - 42 unit/L LAB CHEMISTRY METHOD 12/25/2024 10:15 AM [facility] ALT (SGPT) 24 10 - 60 unit/L LAB CHEMISTRY METHOD 12/25/2024 10:15 AM [facility] Alkaline Phosphatase 65 42 - 121 unit/L LAB CHEMISTRY METHOD 12/25/2024 10:15 AM [facility] Total Protein 6.8 6.0 - 8.0 g/dL LAB CHEMISTRY METHOD 12/25/2024 10:15 AM [facility] Albumin 4.1 3.2 - 5.0 g/dL LAB CHEMISTRY METHOD 12/25/2024 10:15 AM [facility] Total Bilirubin 0.9 0.0 - 1.4 mg/dL LAB CHEMISTRY METHOD 12/25/2024 10:15 AM [facility] Blood Venous blood specimen / Unknown Venipuncture / Unknown 12/25/2024 8:43 AM EDT 12/25/2024 9:09 AM EDT us Prem Potter [employer] LAB BLOOD ORDERABLES Final Re sult [facility] [address] [place] [address], * COLONOSCOPY Anesthesia - MAC; [facility] ENDOSCOPY (08/08/2024 10:25 AM EST) Anatomical Region Laterality Modality Other 08/08/2024 10:0 1 AM EST Impressions 08/08/2024 10:26 AM EST - Internal hemorrhoids. - Diverticulosis in the sigmoid colon. - One 7 mm polyp at the hepatic flexure, removed with a cold snare. Resected and retrieved. - Biopsies were taken with a cold forceps from the ascending colon for evaluation of microscopic colitis. Recommendation: - Use fiber, for example Citrucel, Fibercon, Konsyl or Metamucil. - Repeat colonoscopy in 5 years for surveillance. - Await pathology results. Narrative 08/08/2024 10:26 AM EST [facility] GI Patient Name: Anahy Stover Procedure Date: 08/08/2024 10:01 AM Date of : 1950 Age: 73 Gender: Female Note Status: Finalized Attending MD: Javi Sharp MD, Procedure Date No Time: 08/08/2024 Procedure: Colonoscopy Indications: Chronic diarrhea Providers: Javi Sharp MD Referring MD: Javi Sharp MD Medicines: Propofol per Anesthesia Complications: No immediate complications. Estimated Blood Loss: Estimated blood loss was minimal. Procedure: Pre-Anesthesia Assessment: - ASA Grade Assessment: III - A patient with severe systemic disease. After I obtained informed consent, the scope was passed under direct vision. Throughout the procedure, the patient's blood pressure, pulse, and oxygen saturations were monitored continuously.The Colonoscope was introduced through the anus and advanced to the cecum, identified by appendiceal orifice and ileocecal valve. The colonoscopy was performed without difficulty. The patient tolerated the procedure well. The quality of the bowel preparation was good. Findings: The perianal and digital rectal examinations were normal. Internal hemorrhoids were found during endoscopy. The hemorrhoids were Grade I (internal hemorrhoids that do not prolapse). Multiple diverticula were found in the sigmoid colon. A 7 mm polyp was found in the hepatic flexure. The polyp was sessile. The polyp was removed with a cold snare. Resection and retrieval were complete. Estimated blood loss was minimal. Biopsies for histology were taken with a cold forceps from the ascending colon for evaluation of microscopic colitis. Estimated blood loss was minimal. Procedure Code(s): --- Professional --- 51062, Colonoscopy, flexible; with removal of tumor(s), polyp(s), or other lesion(s) by snare technique 19565, 59, Colonoscopy, flexible; with biopsy, single or multiple Diagnosis Code(s): --- Professional --- K64.0, First degree hemorrhoids D12.3, Benign neoplasm of transverse colon (hepatic flexure or splenic flexure) K52.9, Noninfective gastroenteritis and colitis, unspecified K57.30, Diverticulosis of large intestine without perforation or abscess without bleeding CPT copyright 2020 [employer]. All rights reserved. The codes documented in this report are preliminary and upon master barber review may be revised to meet current compliance requirements. Javi Sharp MD 08/08/2024 10:26:40 AM This report has been signed electronically.Javi Sharp MD Number of Addenda: 0 Note Initiated On: 08/08/2024 10:01 AM Scope In: Scope Out: Endoscopy Department at [facility] - [address] [place] [id number] Procedure Note Javi Sharp MD - 08/08/2024 [facility] GI Patient Name: Anahy Stover Procedure Date: 08/08/2024 10:01 AM Date of : 1950 Age: 73 Gender: Female Note Status: Finalized Attending MD: Javi Sharp MD, Procedure Date No Time: 08/08/2024 Procedure: Colonoscopy Indications: Chronic diarrhea Providers: Javi Sharp MD Referring MD: Javi Sharp MD Medicines: Propofol per Anesthesia Complications: No immediate complications. Estimated Blood Loss: Estimated blood loss was minimal. Procedure: Pre-Anesthesia Assessment: - ASA Grade Assessment: III - A patient with severe systemic disease. After I obtained informed consent, the scope was passed under direct vision. Throughout theprocedure, the patient's blood pressure, pulse, and oxygen saturations were monitored continuously.The Colonoscope was introduced through the anus and advanced to the cecum, identified by appendiceal orifice and ileocecal valve. The colonoscopy was performed without difficulty. The patient tolerated the procedure well. The quality of the bowel preparation was good. Findings: The perianal and digital rectal examinations were normal. Internal hemorrhoids were found during endoscopy.The hemorrhoids were Grade I (internal hemorrhoids thatdo not prolapse). Multiple diverticula were found in the sigmoidcolon. A 7 mm polyp was found in the hepatic flexure. The polyp was sessile. The polyp was removed with acold snare. Resection and retrieval were complete. Estimated blood loss was minimal. Biopsies for histology were taken with a coldforceps from the ascending colon for evaluation ofmicroscopic colitis. Estimated blood loss was minimal. Procedure Code(s): --- Professional --- 86335, Colonoscopy, flexible; with removal of tumor(s), polyp(s), or other lesion(s) by snare technique 21295, 59, Colonoscopy, flexible; with biopsy,single or multiple Diagnosis Code(s): --- Professional --- K64.0, First degree hemorrhoids D12.3, Benign neoplasm of transverse colon (hepatic flexure or splenic flexure) K52.9, Noninfective gastroenteritis and colitis, unspecified K57.30, Diverticulosis of large intestine without perforation or abscess without bleeding CPT copyright 2020 [employer]. All rights reserved. The codes documented in this report are preliminary and upon master barber reviewmay be revised to meet current compliance requirements. Javi Sharp MD 08/08/2024 10:26:40 AM This report has been signed electronically.Javi Sharp MD Number of Addenda: 0 Note Initiated On: 08/08/2024 10:01 AM Scope In: Scope Out: Endoscopy Department at [facility] - [address] [place] [id number] IMPRESSION: - Internal hemorrhoids. - Diverticulosis in the sigmoid colon. - One 7 mm polyp at the hepatic flexure, removedwith a cold snare. Resected and retrieved. - Biopsies were taken with a cold forceps from the ascending colon for evaluation of microscopiccolitis. Recommendation: - Use fiber, for example Citrucel, Fibercon, Konsylor Metamucil. - Repeat colonoscopy in 5 years for surveillance. - Await pathology results. Javi Sharp MD GI~PROCEDURE ORDERABLES Final Re sult from Last 3 Months or Most Recently Relevant to Health Maintenance [place] [id number] MEDICARE [facility] Care Teams Psychology Teacher Relationship Specialty Start Date End Date Adrian Kemp MD [address] [place] [address] ELIAN KHANNA [phone] PCP - General Internal Medicine 08/03/18
[2025-02-26] MEDS: Prochlorperazine Edisylate 10 MG/2 ML VIAL IVPUSH (15:09)
[2025-02-26] MEDS: Ketorolac Tromethamine 15 MG/ML VIAL 10 MG IVPUSH (15:10)
[2025-02-26] MEDS: diphenhydrAMINE HCL 50 MG/ML VIAL 12.5 MG IVPUSH (15:17)
[2025-02-26] MEDS: 0.9 % Sodium Chloride 1,000 ML 999 ML IV (15:21)
[2025-02-26 15:24] LABS: C Reactive Protein 0.11 mg/dL (< or = 0.50)
[2025-02-26 16:12] LABS: Appearance Urine Clear; Color Urine Yellow; Glucose Urine UA Negative (Negative); Leukocyte Esterase Urine Negative (Negative); Nitrite Urine Negative (Negative); PH 6.5 (5.0-9.0); Specific Gravity - Urine >= 1.030 (1.005-1.025); UMIC TRIGGER UACC YES; Urine Blood Trace (Negative); Urine Ketones Trace mg/dL (Negative); Urine Protein Trace mg/dL (Neg-Trace)
[2025-02-26 16:16] VITALS: BP 147/67; PULSE 62; RESP 12; TEMP 36.6; O2SAT 98
[2025-02-26 16:21] VITALS: BP 147/67; PULSE 62; RESP 12; TEMP 36.6; O2SAT 98
[2025-02-26] MEDS: Butalb/Acetamin/Caff 50/325/40 TABLET 1 TAB PO (16:40)
[2025-02-26 18:02] LABS: Bacteria Urine None Seen (None Seen); Hyaline Casts Urine 0-2 /LPF (0-2); WBC Urine 0-5 /HPF (0-5)
== END 2025-02-26 16:47 | disposition home or self-care (01) ==
PROVIDERS: Physician Assistant Medical; Emergency Provider Emergency Medicine; PCP Internal Medicine
DX: R51.9 Headache, unspecified (principal); Z11.52 Encounter for screening for COVID-19
CPT/HCPCS: 70470; 71046; 80053; 81001; 83690; 83735; 85025; 85652; 86140; 86141; 87635; 99284; J0737; J1200; J1885; Q9967

== ENCOUNTER → 2025-02-26 12:13 | Outpatient (BNV) | payer MEDICARE, OTHER, SELFPAY | PROVIDERS: Visit Provider Radiology Diagnostic Radiology | DX: M95.2 Other acquired deformity of head (principal); I10 Essential (primary) hypertension; R05.9 Cough, unspecified | CPT/HCPCS: 71046 ==